=== PATIENT | female | born 1940 | race Caucasian/White ===

== ENCOUNTER 2017-03-25 14:01 | Emergency (ER) | payer MEDICARE, OTHER ==
[~2017-03-25] VITALS: Ht 170.2 cm; Wt 92.3 kg
[2017-03-25 14:22] VITALS: BP 157/72; PULSE 110; RESP 18; O2SAT 99
[2017-03-25 14:55] LABS: BASOPHILS % (AUTO) 0.3 % (0-3); EOSINOPHILS % (AUTO) 0.2 % (0-5); MONOCYTES % (AUTO) 4.9 % (4-12); Mean Corpuscular Hemoglobin 29.1 pg (27.0-35.0); Mean Corpuscular Volume 91.2 fL (81-100); NEUTROPHILS % (AUTO) 80.6 % (40-74); Platelet Count 311 bil/L (150-400)
--- NOTE | 2017-03-25 15:05 | ED.REPORT ---
HPI-General Illness Date of Service Mar 25, 2017 ED Provider: Storm Ahuja MD A 76 year old female with a history of asthma and sinus infections is brought to the ED via EMS due to lightheadedness. The pt felt suddenly lightheaded, shaky and nauseated this morning, and these symptoms have persisted since. Her symptoms are exacerbated by laying down and relieved by movement. When she checked her blood pressure, she found it to be a little high (SBP 150s). She has experienced similar symptoms before when she becomes ill. The pt had a sore throat last week, which she believes may be related to her current symptoms. She is still experiencing a mild sore throat and slight "throat tightness" that she experiences when she is ill, but denies chest pain, abdominal pain, diarrhea , constipation, hematuria, hematochezia, cough, focal weakness, difficulty speaking, vision changes. The pt has been under increased stress recently and suspects that she may have a sinus infection. Nursing Notes Stated Complaint: NAUSEA, DIZZY Chief Complaint: General Complaint Nursing Notes Reviewed: Yes Allergies: Coded Allergies: No Known Allergies (Unverified , 03/25/17) Scheduled Amoxicillin/Clav K 500-125 mg (Augmentin 500) 1 Tab Tab 1 TABLET PO TID General Time Seen by MD: 15:04 Chief Complaint Other (Lightheadedness) Hx Obtained From: Patient, EMS Arrived By: Ambulance Sudden in Onset?: Yes Onset Occurred: 1 - 4 hours ago Recent Healthcare: No recent hospitalization, Recent doctor visit Similar Sx Previous: Yes Past Medical History Past Medical History asthma sinus infection Past Surgical History colonoscopy uterine polyp removal Reports: (x2) Family History denies cardiac history Smoking History Unknown if Ever Smoker Social History Other Social History: Good social support, Ambulatory Status Independent Review of Systems shaky high blood pressure Full Review of Systems Constitutional: Denies: Chills, Fever Ears / Nose / Throat: Reports: Sore throat Respiratory: Denies: Non-productive cough, Shortness of breath Cardiovascular: Denies: Chest pain GI: Reports: Nausea, Denies: Abdominal pain, Constipation, Diarrhea, Hematochezia, Vomiting Female: Denies: Hematuria Musculoskeletal: Denies: Back pain, Neck pain Skin: Denies Rash Neurologic: Reports: Lightheaded, Denies: Focal weakness, Unable to speak, Vision change Psychiatric: Reports: Stress Complete sys rev & neg: except as marked. Physical Exam Constitutional: Well-developed, well-nourished. Not diaphoretic. Head: Normocephalic and atraumatic. Mouth/Throat: Oropharynx is clear and moist. No oropharyngeal exudate, erythema or swelling. No peritonsillar abscess. Eyes: EOM are normal. Pupils are equal, round, and reactive to light. Neck: Supple, no tracheal deviation. No cervical lymphadenopathy. No palpable masses. No stridor. Cardiovascular: Tachycardic, regular rhythm. Equal and intact distal pulses throughout. Pulmonary/Chest: Effort normal and breath sounds normal. No respiratory distress. Abdominal: Soft. No distension. There is no tenderness, rebound, or guarding. Bowel sounds present. Musculoskeletal: Range of motion grossly intact, moving all extremities. No edema or tenderness appreciated. Neurological: AOx3. Grossly nonfocal exam. Strength and sensation intact and equal to bilateral upper and lower extremities. Skin: Warm and dry, no rashes or pallor appreciated. Psychiatric: Appropriate mood and affect. Behavior appears normal. Vital Signs Vital Signs Date Time Temp Pulse Resp B/P Pulse Ox O2 Delivery O2 Flow Rate FiO2 03/25/17 21:37 36.3 87 18 134/73 97 Room Air 03/25/17 20:12 96 18 145/65 97 Room Air 03/25/17 19:18 100 20 152/74 98 Room Air 03/25/17 16:24 37.3 106 18 143/57 98 Room Air 03/25/17 14:22 36.2 110 18 157/72 99 Initial VS: Reviewed Interpretation & Diagnostics Interpretation & Diagnostics: CT Angio Chest PE: IMPRESSION: 2 soft tissue nodules are seen within the right lower lobe, and a similar sized nodular radiodensity seen at the left lower lobe as discussed above. No pulmonary emboli are seen. The lesions discussed above will not be visible by plain film and therefore followup by CT scanning without contrast in 6 months is recommended. Please correlate for whether any pre-existing neoplasm is present for this patient. The likelihood of malignancy is considered low, but malignancy remains a significant concern for this appearance. Dictated by: Noe Salinas M.D. on 03/25/2017 at 18:44 Approved by: Noe Salinas M.D. on 03/25/2017 at 18:[address]: IMPRESSION: Source of current sensation is not identified. Please note that the CT scan of the chest that was also obtained today identifies 2 right and one left small masses within the lung parenchyma, chronicity and etiology uncertain Dictated by: Noe Salinas M.D. on 03/25/2017 at 19:03 Approved by: Noe Salinas M.D. on 03/25/2017 at 19:05 Lab Results Interpretation Result Diagram: 03/25/17 1445 03/25/17 1445 Test 03/25/17 14:45 03/25/17 15:05 03/25/17 15:06 White Blood Count 13.6th/mm3 (3.8-10.1) Red Blood Count 4.99mil/mm3 (3.90-5.20) Hemoglobin 14.5g/dL (12.0-15.6) Hematocrit 45.5% (35.0-46.0) Mean Corpuscular Volume 91.2fL (81-100) Mean Corpuscular Hemoglobin 29.1pg (27.0-35.0) Mean Corpuscular Hemoglobin Concent 31.9% (32.0-37.0) Red Cell Distribution Width 13.6% (12.3-15.4) Platelet Count 311bil/L (150-400) Neutrophils (%) (Auto) 80.6% (40-74) Lymphocytes (%) (Auto) 13.8% (14-46) Monocytes (%) (Auto) 4.9% (4-12) Eosinophils (%) (Auto) 0.2% (0-5) Basophils (%) (Auto) 0.3% (0-3) Sodium Level 140mEq/L (134-144) Potassium Level 3.8mEq/L (3.5-5.2) Chloride Level 101mEq/L (97-108) Carbon Dioxide Level 18mmol/L (18-29) Blood Urea Nitrogen 20mg/dL (8-27) Creatinine 0.69mg/dL (0.57-1.00) Estimat Glomerular Filtration Rate 119mL/min (>59) Glucose Level 138mg/dL (60-99) Lactic Acid Level 1.7mmol/L (0.4-2.0) Calcium Level 9.4mg/dL (8.5-10.1) Magnesium Level 1.9mg/dL (1.6-2.6) Total Bilirubin 0.3mg/dL (0.0-1.2) Aspartate Amino Transf (AST/SGOT) 16U/L (0-50) Alanine Aminotransferase (ALT/SGPT) 15U/L (0-32) Alkaline Phosphatase 74U/L (25-165) Troponin T < 0.010ug/L (0.0-0.011) Total Protein 7.0g/dL (6.4-8.4) Albumin 4.5g/dL (3.4-5.0) Thyroid Stimulating Hormone (TSH) 2.880uIU/mL (0.450-4.500) Free Thyroxine 1.43ng/dL (0.82-1.77) Hold [place] Top Tube Received (Received) Hold Urine Received (Received) Urine Color Straw (YELLOW) Urine Appearance Hazy (CLEAR,HAZY) Urine pH 6.5 (5.0-8.0) Urine Specific [place] 1.005 (1.003-1.035) Urine Protein Negativemg/dL (NEG,TRACE) Urine Glucose (UA) Negativemg/dL (NEGATIVE) Urine Ketones 15mg/dL (NEGATIVE) Urine Occult Blood Trace (NEGATIVE) Urine Nitrite Negative (NEGATIVE) Urine Bilirubin Negative (NEGATIVE) Urine Urobilinogen Normalmg/dL (NORMAL) Urine Leukocyte Esterase Trace (NEGATIVE) Urine RBC 0-2/hpf (0-2) Urine WBC 0-5/hpf (0-5) Urine Epithelial Cells Occasional/hpf (NONE-MOD) Urine Crystals None seen (NONE SEEN) Urine Bacteria Few/hpf (NONE-FEW) Urine Hyaline Casts None/lpf (NONE) Urine Granular Casts None seen (NONE SEEN) Urine Waxy Casts None seen (NONE SEEN) Urine Red Blood Cell Casts None seen (NONE SEEN) Urine White Blood Cell Casts None seen (NONE SEEN) Urine Mucus None seen (None Seen) Urine Trichomonas None seen (NONE SEEN) Urine Yeast None (NONE SEEN) Urinalysis Comment None Urine Culture Reflexed Indicated ECG Interpretation ECG Interpretation: sinus tachycardia with a rate of 103 probable left atrial enlargement right axis deviation Time: 15:37 Interpreted by: ED physician X-Ray Chest Interpretation Chest Xray Interpretation: IMPRESSION: No acute cardiopulmonary disease. Dictated by: Carter Walters M.D. on 03/25/2017 at 16:15 Approved by: Carter Walters M.D. on 03/25/2017 at 16:16 Interpretation / Wet Read by: Interpret - Radiologist CT Head Interpretation IMPRESSION: No acute process. Dictated by: Lisa Monet M.D. on 03/25/2017 at 15:40 Approved by: Lisa Monet M.D. on 03/25/2017 at 15:41 Interpretation / Wet Read by: Interpret - Radiologist Re-Eval/Medical Decision Med Decision/Clinical Course In summary, 76-year-old female with an unremarkable past medical history presenting to the ED for evaluation of lightheadedness and "not feeling right" associated with some nausea since earlier today. She has also had a mild sore throat and some tightness in her neck. She is not having any abdominal pain or discomfort whatsoever. Differential is broad and includes metabolic abnormality , systemic infectious process, ACS, PE, neck abscess/mass, viral upper respiratory illness, etc. She is afebrile, nontoxic appearing. She is tachycardic here in the ED with a rate between 110s to 120s. EKG demonstrates sinus tachycardia, however no acute ischemic changes. Chest x-ray with no evidence of pneumonia. Head CT negative for acute intracranial process and she has no neurologic complaints that would suggest CVA/TIA. Her urinalysis is negative for infection. Laboratory studies notable for a white blood cell count of 13.6 with 80.6% neutrophils, lactic acid of 1.7, CMP grossly within normal limits. No signs of peritonsillar abscess. Thyroid studies and a rapid strep was performed; these were within normal limits and negative, respectively. Given her tachycardia and later report of dyspnea, a CT PE and CT of her neck was also obtained, demonstrate no acute abnormalities that would account for her symptoms at this time. However, nodules in the lung were noted and I discussed these at length with the patient , including the need for close outpatient follow-up. Patient verbalized understanding and agreement. Given this, reasonable to discharge home with very careful return precautions, PCP follow-up tomorrow. Also, given that she states she has symptoms consistent with her sinusitis, I will treat her with antibiotics. Pt agreeable to plan as stated, no further questions. Source of Hx: Old records Time of Eval: 20:40 Patient Status: Condition improved Re-Evaluation/Progress Note: Pt rechecked, who is feeling significantly better. The diagnosis and plan for discharge are discussed. The pt understands and agrees with the plan. All questions are addressed at this time. Counseled Regarding: Diagnosis, Lab results, Need for follow-up, When/why to return to ED Discharge & Departure Primary Impression: Tachycardia Additional Impressions: Lightheaded Nausea Sinusitis Sinusitis location: unspecified location Chronicity: acute Recurrence: not specified as recurrent Qualified Code: J01.90 - Acute sinusitis, unspecified Disposition: Home Discharge Condition All VS Reviewed: Yes Condition: Stable Patient Instructions: Lightheadedness (ED), Sinusitis (ED), Tachycardia (ED) Additional Instructions: Thank you for allowing us to be a part of your care. Call your primary care physician to arrange a follow up appointment in the next one to two days. Return to the emergency department if you develop any new or worsening symptoms such as passing out, nausea, vomiting, diarrhea, chest pain or abdominal pain, or if there is anything else of concern to you. Referrals: Nany Schmitz MD (PCP) Herbie Emery MD (Family) Scribe Attestation Portions of this note were transcribed by David Moser. I, Dr. Ahuja personally performed the history, physical exam and medical decision-making; I reviewed and confirmed the accuracy of the information in the transcribed note. copies to: Herbie Emery MD; Nany Schmitz MD, William B MD Mar 25, 2017 15:05 DAVID MOSER Mar 25, 2017 15:28
[2017-03-25 15:19] LABS: TROPONIN T < 0.010 ug/L (0.0-0.011)
--- NOTE | 2017-03-25 15:43 | DRSVH ---
PROCEDURE: CT BRAIN WITHOUT CONTRAST ([id number]) INDICATIONS: dizzy, lightheaded, nauseous TECHNIQUE: Noncontrast 4.5 mm thick angled axial sections acquired from the foramen magnum to the vertex, with c oronal reformats. COMPARISON: None. FINDINGS: Image quality: Excellent. CSF spaces: Basal cisterns are patent. No extra-axial fluid collections. Ventricles are normal in size and shape. Brain: No midline shift. No intracranial masses or hemorrhage. Viera-white matter interface is norm al. Skull and face: Calvarium and visualized facial bones are intact, without suspicious lesions. Sinuses: Visualized sinuses and mastoids are clear. IMPRESSION: No acute process. Dictated by: Lisa Monet M.D. on 03/25/2017 at 15:40 Approved by: Lisa Monet M.D. on 03/25/2017 at 15:41
[2017-03-25 15:45] LABS: APPEARANCE,URINE HAZY (CLEAR,HAZY); COLOR,URINE STRAW (YELLOW); OCCULT BLOOD,URINE TRACE (NEGATIVE); PH,URINE 6.5 (5.0-8.0); UROBILINOGEN,URINE NORMAL (NORMAL)
--- NOTE | 2017-03-25 16:17 | DRSVH ---
PROCEDURE: X-RAY CHEST ONE VIEW, PORTABLE ([id number]) INDICATIONS: 76 year-old female with nausea. TECHNIQUE: One view of the chest was acquired. COMPARISON: None. FINDINGS: Surgical changes and devices: None. Lungs and pleura: No pleural effusions or pneumothorax. Lungs are clear. Mediastinum: Mediastinal contours appear normal. Heart size is normal. Bones and chest wall: No suspicious bony lesions. Overlying soft tissues appear unremarkable. IMPRESSION: No acute cardiopulmonary disease. Dictated by: Carter Walters M.D. on 03/25/2017 at 16:15 Approved by: Carter Walters M.D. on 03/25/2017 at 16:16
[2017-03-25 16:24] VITALS: BP 143/57; PULSE 106; RESP 18; O2SAT 98
[2017-03-25] MEDS ORDERED: 0.9% Sodium Chloride 1,000 ML IV ONE (17:05)
--- NOTE | 2017-03-25 18:51 | DRSVH ---
PROCEDURE: CT ANGIO CHEST PULMONARY EMBOLISM ([id number]) INDICATIONS: tachycardia, dyspnea TECHNIQUE: After the administration of intravenous contrast, 2 mm thick sections acquired from the pulmonary api julian to the posterior costophrenic angles. 3-dimensional maximum intensity projection (MIP) coronal a nd sagittal reformats were then acquired through the thorax. For radiation dose reduction, the follo wing was used: automated exposure control, adjustment of mA and/or kV according to patient size. COMPARISON: None. FINDINGS: Image quality: Excellent. Pulmonary arteries: Pulmonary arteries are normal in size, and demonstrate no intraluminal filling d efects to suggest central pulmonary embolism. Lungs and pleura: Lungs are abnormal with 2 small nodules right lower lobe (series 3 image 30 and se morales 3 image 37) which are located laterally and medially respectively, sharply demarcated without in ternal calcification each measuring 7 mm in diameter. There also is scarring or a small nodule at th e anterolateral left lower lung area, where the lingular segment intersects the left lower lobe. Thi s is best seen centered on series 3 image 43.. No pleural effusions or pneumothorax. Central and pe ripheral airways are patent. Mediastinum: Heart size is normal, without pericardial effusion. No mediastinal or hilar adenopathy . Thoracic aorta is normal in caliber and enhancement. Esophagus is normal in caliber, without hiat al hernia. Bones and chest wall: No suspicious bony lesions. Ribs and thoracic spine appear intact throughout. Thyroid gland appears normal where well visualized. No axillary or supraclavicular adenopathy. Abdomen: Visualized upper abdominal solid organs appear normal in the early arterial phase of enhanc ement. IMPRESSION: 2 soft tissue nodules are seen within the right lower lobe, and a similar sized nodular radiodensity seen at the left lower lobe as discussed above. No pulmonary emboli are seen. The lesi ons discussed above will not be visible by plain film and therefore followup by CT scanning without c ontrast in 6 months is recommended. Please correlate for whether any pre-existing neoplasm is presen t for this patient. The likelihood of malignancy is considered low, but malignancy remains a signifi cant concern for this appearance. Dictated by: Noe Salinas M.D. on 03/25/2017 at 18:44 Approved by: Noe Salinas M.D. on 03/25/2017 at 18:49
--- NOTE | 2017-03-25 19:07 | DRSVH ---
PROCEDURE: CT NECK SOFT TISSUES WITH CONTRAST ([id number]) INDICATIONS: tachy, sob, sore thr; feels like something in neck TECHNIQUE: After the administration of intravenous contrast, 3.0 mm axial sections acquired from the sella to th e aortic arch. Additional oblique axial 3.0 mm sections acquired through the pharynx. 3 mm thick co davidson reformats were generated. For radiation dose reduction, the following was used: automated exp osure control. COMPARISON: None. FINDINGS: Image quality: Excellent. Lymph nodes: No enlarged lymph nodes seen throughout the neck. Vessels: Visualized vasculature appears patent. Neck spaces: The oropharynx, nasopharynx, and pharynx demonstrate no mucosal lesions. The vocal cor ds, false vocal cords, pyriform sinuses, epiglottis, vallecula, and tongue base all appear normal. E xtramucosal spaces appear unremarkable. Glands: The parotid and submandibular glands appear normal. Thyroid gland appears normal where well visualized. Miscellaneous: Visualized brain and orbits appear normal. Lung apices appear clear. Superficial so ft tissues appear normal. Bones: No suspicious bony lesions. Visualized sinuses and mastoids appear unremarkable. IMPRESSION: Source of current sensation is not identified. Please note that the CT scan of the ches t that was also obtained today identifies 2 right and one left small masses within the lung parenchym a, chronicity and etiology uncertain Dictated by: Noe Salinas M.D. on 03/25/2017 at 19:03 Approved by: Noe Salinas M.D. on 03/25/2017 at 19:05
[2017-03-25 19:18] VITALS: BP 152/74; PULSE 100; RESP 20; O2SAT 98
[2017-03-25 20:12] VITALS: BP 145/65; PULSE 96; RESP 18; O2SAT 97
[2017-03-25] MEDS ORDERED: AMOX1TAB11 PO (21:01)
[2017-03-25 21:37] VITALS: BP 134/73; PULSE 87; RESP 18; O2SAT 97
== END 2017-03-25 21:29 | disposition home or self-care (01) ==
LOC: EDBD 14:01 → SED 14:01
DX: R00.0 Tachycardia, unspecified (principal); R42 Dizziness and giddiness; R11.0 Nausea; J01.90 Acute sinusitis, unspecified; J45.909 Unspecified asthma, uncomplicated
CPT/HCPCS: 36415; 70450; 70491; 71010; 71275; 80053; 81000; 83605; 83735; 84439; 84443; 84484; 85025; 87086; 87088; 87147; 87880; 93005; 96361; 96374; 99285; J2060; J7030; Q9967